=== PATIENT | female | born 1960 | race Caucasian/White ===

== ENCOUNTER 2019-01-08 20:30 | Emergency (ER) | payer SELFPAY ==
--- NOTE | 2019-01-08 20:38 | ED.GENADUL_ITS ---
Discharge Plan Disposition Patient Disposition: OTHER Condition: Stable Discharge Details Chief Complaint: PsychEval Clinical Impression: Alcohol intoxication with moderate or severe use disorder Primary Care Provider: LUIS FONTAINE ED Provider: Bandar Wright Home Meds and New Rx's Prescriptions: Continued triamcinolone acetonide 15 GM cream 1 applic Topical DAILY Qty: 80 RF: 4 Discharge Instructions Instructions: Alcohol Intoxication (ED) Additional Instructions: You will be brought to the PIP bed and re-evaluated in the morning. You should go to alcohol counseling/rehab. Return to ED if problems. Referrals: [facility] [Provider Group] Medical Decision Making Patient brought in for mental health eval. Patient does admit to drinking. She admits to being upset about her mom. She denies SI or HI. I will get screening blood work. She is being evaluated by mental health. Patient's lab work is unremarkable other than an alcohol level of 262 and a salicylate level of 7.2. I have asked patient whether she has taken anything containing aspirin or [place]. She denies. She has taken no medications today. Rest of her labs look fine. We will plan on repeating a salicylate to see whether it is going up or not. If it is not released to mental health to take her to the care bed for the night. They have been in contact with her . He is fine with her coming home once she is sober. 00:10 -repeat salicylate level is going down. Patient is medically cleared. She will be brought to PIP bed to sober up and be re-evaluated by mental health in morning and likely home to . HPI General Mode of arrival: ambulatory . Date/Time Provider Initiated Documentation: 01/08/19 20:34 . Information obtained by: patient and police . HPI Narrative: Patient brought in by [facility] for psych eval. Per police family called them with concern for patient's safety. Patient is intoxicated. She reportedly got bad news about her mom this morning and started drinking. Then started making statements regarding not being useful, better off without her but no overt statement regarding active SI. Patient arrives here crying, tearful. Patient does admit to drinking today. On questioning she states that she drinks pretty much every day. She drinks mostly vodka. She denies trying to harm herself. She states that what she did at the house in regards to taking the pill bottles out of the cupboard was stupid. She reports that she would never hurt herself. She loves her , son, grandson too much. She is definitely upset about her mother dying. She actually has relatively clear sensorium. She has no physical complaints of. Related Data Home Medications Medication Instructions Recorded Confirmed triamcinolone acetonide 1 applic TOPICAL DAILY #80 gm 05/07/15 01/08/19 Allergies Allergy/AdvReac Type Severity Reaction Status Date / Time penicillin AdvReac Intermediate Vomiting Unverified 01/08/19 20:59 Review of Systems Review of Systems 07/07 Review of Systems completed and is negative except as stated above in HPI (Systems reviewed: Const, Eyes, ENT, Resp, CV, GI, , MSK, Skin, Neuro) PFSH Medical History Psoriasis (Chronic) Surgical History H/O tubal ligation (Inactive) Social History Smoking/Tobacco Use Status: Current every day Tobacco Type: cigarettes Alcohol Intake: current Alcohol type: hard liquor Drug use: Daily Details: pt states I drink she states that she usually drinks Vodka Do you feel safe at home: Yes Do you feel safe in your relationship?: Yes Exam Narrative Exam Narrative: Const: WDWN female upset, crying. HEENT: NC/AT. Normal facial exam. Eyes: Normal conjunctiva and sclera. Neck: Supple. Trachea midline. Lungs: Normal respiratory effort. Lungs are clear. Cor: RRR without murmur/gallop. Good radial pulses. Neuro: A+O x 3. CN grossly in tact. Good strength and no focal deficit. Speech clear. Ext: No C/C/E. No deformity or tenderness. Skin: Warm and dry without rash. Psych: Crying, upset, sad about mother. Denies SI, HI. Denies halluciantions.
[2019-01-08 20:43] VITALS: BP 152/70; PULSE 89; RESP 18; TEMP 36.6; O2SAT 99
[2019-01-08 21:48] LABS: ALT 49 U/L (12-78); AST 53 U/L (15-37); Albumin 4.1 g/dL (3.4-5.0); Alkaline Phosphatase 69 U/L (46-116); Anion Gap 11.4 mmol/L (3-11); BUN 9 mg/dL (7-18); Bilirubin, Total 0.3 mg/dL (0.2-1.0); CO2 27.6 mmol/L (21.0-32.0); CREATININE 0.45 mg/dL (0.55-1.02); Chloride 104 mmol/L (98-107); ETHANOL BLOOD 261.8 mg/dL (<3); Glucose 108 mg/dL (70-100); Potassium 4.1 mmol/L (3.5-5.1); Sodium 143 mmol/L (136-145); Total Protein 8.4 g/dL (6.4-8.2)
[2019-01-08 21:53] LABS: Salicylate 7.2 mg/dL (2.8-20.0)
[2019-01-08 21:54] LABS: Acetaminophen < 2 ug/mL (10-30)
[2019-01-08 21:56] LABS: *AMPHETAMINES SCREEN URINE Negative (Negative); *BARBITURATES SCREEN URINE Negative (Negative); *BENZODIAZEPINES SCREEN URINE Negative (Negative); Cannabinoids THC Negative (Negative); Cocaine Screen,Urine Negative (Negative); METHADONE URINE SCREEN Negative (Negative); OPIATES URINE SCREEN Negative (Negative); Tricyclic Antidepressants Negative (Negative)
[2019-01-08 23:33] VITALS: BP 148/90; PULSE 69; RESP 16; TEMP 36.7; O2SAT 94
[2019-01-09 00:02] LABS: Salicylate 5.4 mg/dL (2.8-20.0)
== END 2019-01-09 00:17 | disposition other institution (70) ==
PROVIDERS: Emergency Provider Emergency Medicine; PCP Nurse Practitioner Family
DX: F10.120 Alcohol abuse with intoxication, uncomplicated (principal)
CPT/HCPCS: 36415; 80053; 80307; 99283; 80320; 80329

== ENCOUNTER 2019-10-21 08:59 | Day surgery (SDC) | payer OTHER, SELFPAY ==
[2019-10-21 09:09] VITALS: BP 134/80; PULSE 67; RESP 16; TEMP 35.9; O2SAT 97
--- NOTE | 2019-10-21 09:30 | W.PM.DSUDISC ---
Discharge Plan Disposition Patient Disposition: HOME Condition: Good Discharge Details Reason For Visit: Excision left shoulder lipoma Attending Provider: Maria Elena Iyer Primary Care Provider: Mo Rodriguez Home Meds and New Rx's Prescriptions: Continued ibuprofen 200 mg capsule 600 mg PO Q6H PRNRF: 0 triamcinolone acetonide 15 GM cream 1 applic Topical DAILY PRNQty: 80 RF: 4 Discharge Instructions Additional Instructions: The top bandage can be removed tomorrow. The steri strips will usually stick for about a week. When the edges start to curl up, they can be removed. It is okay to shower tomorrow, the water can run over the steri strips Do not swim or soak in a tub for two weeks Call for any concerns including fever, increased pain, vomiting, incision redness or drainage. Keep lifting light for two weeks. Walking and stairs are fine. Do not drive if on narcotic pain meds or if limited by pain. May use Tylenol alternating with ibuprofen for pain control. Ice is also an option. The maximum dose for Tylenol is 4000 mg/day. May use ibuprofen 800 mg every 8 hours as needed. If concerned about constipation, you may use a stool softener or milk of magnesia. It is normal for some fluid to collect under the incision. This will absorb within 4-6 weeks. If it is bothersome, please contact my office. Referrals: Maria Elena Iyer MD [ [facility] STAFF PHYSICIAN] - (Return in 10-14 days as needed for a postop check) Activity:: Light Remove Dressings/Wound Care:: 24 hours Shower/Bathe:: 24 hours Diet:: As Tolerated Discharge Orders Discharge Orders: Discharge Order (Routine); Ordered 10/21/19 Ordered By: Maria Elena Iyer DS: Diagnosis Discharge Diagnosis (1) Lipoma: Status: Acute
[2019-10-21] MEDS: Lactated Ringers 1,000 ML 80 ML IV (09:46)
--- NOTE | 2019-10-21 10:33 | SOFT_PTH ---
PATIENT: Zeinab Ludwig LOC: [facility] U#:[id number] AGE/SX: 59/F ROOM: RE10/21/[address]: Maria Elena Iyer MD : 1960 BED: DIS: 10/21/2019 SPEC #: [id number] RECD: 10/21/19 12:22 STATUS: HARRY REQ #: [id number] CARLOS: 10/21/19 10:[address]: Maria Elena Iyer DEPT: Surgical Specimen RECD BY: Jazmine Morrissey ENTERED: 10/21/19 12:23 SP TYPE: SOFT OTHR DR: Mo Rodriguez MD Tissues: 1 - SOFT TISSUE MISC (INC. LIPOMA) Procedures: GROSS AND MICRO LEVEL 3 Comments: [id number]
[2019-10-21] MEDS: Bupivacaine 0.25% Pres-Free 30 ML VIAL 20 ML IJ (10:39)
[2019-10-21] MEDS: Bupivacaine LIPOSOME/PF 133 MG/10 ML VIAL IJ (10:39)
[2019-10-21 11:25] VITALS: BP 118/74; PULSE 64; RESP 16; TEMP 36.3; O2SAT 95
--- NOTE | 2019-10-22 07:39 | ROE_ITS ---
REPORT OF OPERATIVE PROCEDURE DATE OF PROCEDURE October 21, 2019 PREOPERATIVE DIAGNOSIS Left posterior shoulder lipoma. POSTOPERATIVE DIAGNOSIS Left posterior shoulder lipoma. PROCEDURE Excision left posterior shoulder lipoma. SURGEON Maria Elena Iyer M.D. ANESTHESIA Local and General. INDICATIONS This is a 59-year-old woman with a bothersome lump along the bra line of her posterior left shoulder. PROCEDURE DESCRIPTION The patient was placed in the right lateral decubitus position. Her shoulder was prepped and draped s terilely. Sedation was administered and the skin overlying the mass was infiltrated with local anesth etic. A vertical incision was made and subcutaneous tissue was divided down to a well encapsulated l ipoma. This was dissected free intact with mostly blunt dissection and occasional use of cautery. Th e lump measured 10 cm in size, and again was removed completely. Hemostasis was achieved with cautery and then the skin closed with running #4-0 Monocryl subcuticular stitch. She tolerated the procedur e well and was stable to recovery.
== END 2019-10-21 11:45 | disposition home or self-care (01) ==
PROVIDERS: PCP Family Medicine; Visit Provider Surgery
PROC: (CPT 21931; principal; 2019-10-21 10:30)
DX: D17.1 Benign lipomatous neoplasm of skin and subcutaneous tissue of trunk (principal)
CPT/HCPCS: 21931; 88304; J1885; J2250; J2405; J2704

== ENCOUNTER 2019-11-24 10:38 | Day surgery (SDC) | payer OTHER, SELFPAY ==
[2019-11-24 10:50] VITALS: BP 150/75; PULSE 66; RESP 16; TEMP 37; O2SAT 98
[2019-11-24] MEDS: Lactated Ringers 1,000 ML 80 ML IV (11:27)
[2019-11-24] MEDS: ceFAZolin 1 GM/50 ML BAG IVPB (14:02)
--- NOTE | 2019-11-24 14:37 | W.PM.DSUDISC ---
Discharge Plan Disposition Patient Disposition: HOME Condition: Good Discharge Details Reason For Visit: Release 1 st dorsal extensor compartment R wrist Attending Provider: Russ Tillman Primary Care Provider: Mo Rodriguez Home Meds and New Rx's Prescriptions: New hydrocodone-acetaminophen 5-325 mg tablet 1 tab PO Q6H PRN (Reason: pain) Qty: 10 RF: 0 No Action ibuprofen 200 mg capsule 600 mg PO Q6H PRNRF: 0 triamcinolone acetonide 15 GM cream 1 applic Topical DAILY PRNQty: 80 RF: 4 Discharge Instructions Additional Instructions: Try to elevate R hand above heart level as much as possible overnite tonite. Wiggle fingers R hand 10 times/hour when awake to prevent swelling. Keep dressings and splint dry and in place for 5 days. After 5 days, remove splint AND dressings and begin to move R thumb and wrist. Use R hand as much as your discomfort allows. After you remove the dressings, may shower or bathe and get incision wet. Leave incision uncovered when it is dry and sealed. Take ibuprofen for mild pain. Take hydrocodone for breakthru pain, if needed. Follow up with in 2 weeks. Referrals: Russ Tillman MD [ [facility] STAFF PHYSICIAN] - (f/u in 2 weeks.) Equipment/Supplies: Splint Activity:: Activity as Tolerated Diet:: As Tolerated Discharge Orders Discharge Orders: Discharge Order (Routine); Ordered 11/24/19 Ordered By: Russ Tillman
[2019-11-24 15:07] VITALS: BP 129/68; PULSE 70; RESP 18; TEMP 36.4; O2SAT 95
--- NOTE | 2019-11-26 05:29 | ROE_ITS ---
REPORT OF OPERATIVE PROCEDURE DATE OF PROCEDURE November 24, 2019 PREOPERATIVE DIAGNOSIS De Quervain's tenosynovitis of the first dorsal extensor compartment, right wrist. POSTOPERATIVE DIAGNOSIS De Quervain's tenosynovitis of the first dorsal extensor compartment, right wrist. PROCEDURES Tendon sheath incision at radial styloid for de Quervain's tendinitis, right wrist. Application of a short arm thumb spica splint. ANESTHESIA IV regional. SURGEON Russ Tillman M.D. INDICATIONS This is a 59-year-old white female with a five-month history of right wrist and thumb pain. This has not responded to conservative treatment of antiinflammatories and splinting. Clinical examination was consistent with de Quervain's tendinitis right wrist. Because of failure to improve with conservativ e treatment over five months, surgery was recommended to decompress the tendons of the first dorsal e xtensor compartment and alleviate her pain. The risks and complications of the procedure were explain ed to the patient in detail preoperatively. DESCRIPTION OF PROCEDURE The patient was taken to the Operating Room on 12/12/19. She was placed supine on the operating tabl e and an IV regional anesthetic was administered to the right upper extremity. Once good anesthesia was obtained, the right hand, wrist and forearm were prepped and draped free in the usual sterile fas hion. A longitudinal incision was made, centered over the first dorsal extensor compartment at the r adial styloid of the right wrist. The incision was about 3 inches in length. The incision was roxanna d down through the skin to the subcu. Blunt tip Littler scissors were then used to mobilize the termi nal branches of the superficial radial nerve away from the first dorsal extensor compartment. The fir st dorsal extensor compartment was incised longitudinally. There were multiple tendon slips encounte red. One small tendon slip was in a separate small compartment. This compartment was released. I then carefully and thoroughly investigated all the tendons as far as proximally of the first dorsal exten sor compartment, as far proximally as the musculotendinous junctions. I encountered a fairly large te ndon slip that was passing through a completely separate compartment within the first dorsal extensor compartment. The sheath of this compartment was probably 2 mm to 3 mm thick. I not only released the compartment, I excised the septi between the tendons, so I created one compartment for all the tendo n slips. The wound margins were infiltrated with 0.5% Marcaine with epinephrine solution. The skin edges were approximated with interrupted #4-0 Nylon sutures. Sterile dressings were applied of Xeroform gauze, sterile gauze, 4x4s, ABD Pad, wrapped with an Intersorb bandage, then I applied a radial thumb spica fiberglass splint, which was held in place with a 3-inch Derrick bandage. The patient's IV regional anesthesia was reversed without complication. She was discharged to the Re covery Room in good condition. The patient was later discharged home from the Day Surgery Unit when fully recovered from her IV remy onal anesthesia. She was given in instructions to try to elevate her right hand above heart level as much as possible overnight tonight. She is encouraged to wiggle her fingers 10 times an hour while awake to prevent swelling. She is to k eep the dressings and splint dry and intact for five days. After five days, she is to remove the dres sings and splint and begin to remove her right wrist and thumb. After she removes her dressings she m ay shower, bathe and get her incision wet. She can leave the incision uncovered when it is dry and se aled. She will take Tylenol or ibuprofen for mild pain. She was given a prescription for breakthrough pain of hydrocodone with APAP 5/325, one tablet every six hours as needed. Follow up with Dr. Tillman in two weeks.
== END 2019-11-24 15:30 | disposition home or self-care (01) ==
PROVIDERS: PCP Family Medicine; Visit Provider Orthopaedic Surgery
PROC: (CPT 25000; principal; 2019-11-24 12:15)
DX: M65.4 Radial styloid tenosynovitis [de Quervain] (principal)
CPT/HCPCS: 25000; J0690; J2001; J2250; J2704; J3010

== ENCOUNTER 2022-11-24 10:23 | Outpatient (REF) | payer OTHER, SELFPAY ==
--- NOTE | 2022-11-24 10:00 | SKI_PTH ---
PATIENT: Zeinab Ludwig LOC: [facility] U#:[id number] AGE/SX: 62/F ROOM: RE11/24/[address]: FIORDALIZA Hernandez : 1960 BED: DIS: 11/24/2022 SPEC #: [id number] RECD: 11/24/22 18:17 STATUS: HARRY REQ #: [id number] CARLOS: 11/24/22 10:[address]: Ned Segovia DEPT: Surgical Specimen RECD BY: Jazmine Morrissey ENTERED: 11/24/22 18:17 SP TYPE: GABO HINKLE DR: Mo Rodriguez MD Tissues: 1 - SKIN BIOPSY(SHAVE/PUNCH) 2 - SKIN BIOPSY(SHAVE/PUNCH) Procedures: SKIN LEVEL 4 Comments: [id number]
== END 2022-11-24 10:24 | disposition home or self-care (01) ==
LOC: LBN 10:23
PROVIDERS: PCP Family Medicine; Visit Provider Physician Assistant
DX: D22.5 Melanocytic nevi of trunk (principal)
CPT/HCPCS: 88305

== ENCOUNTER 2022-12-27 03:27 | Outpatient (CLI) | payer OTHER, SELFPAY ==
[2022-12-27 11:44] LABS: Calculated LDL 134 mg/dL (<100); Cholesterol 199 mg/dL (<200); HDL Cholesterol 56 mg/dL (40-60); Triglyceride 48 mg/dL (<150)
[2022-12-27 12:06] LABS: FREE T4 0.88 ng/dL (0.76-1.46); TSH 1.77 uIU/mL (0.36-3.74)
[2022-12-27 20:17] LABS: T3,Free 4.2 pg/mL (2.8-5.3)
[2022-12-28 19:52] LABS: Thyrotropin Receptor Ab <1.10 IU/L
== END 2022-12-27 03:28 | disposition home or self-care (01) ==
LOC: LBO 03:27
PROVIDERS: Ophthalmology; PCP Family Medicine; Visit Provider Family Medicine
DX: H02.531 Eyelid retraction right upper eyelid (principal); H02.534 Eyelid retraction left upper eyelid
CPT/HCPCS: 36415; 80061; 84235; 84439; 84443; 84480; 84481

== ENCOUNTER 2023-06-01 11:11 | Outpatient (REF) | payer OTHER, SELFPAY ==
--- NOTE | 2023-06-01 10:30 | SKI_PTH ---
PATIENT: Zeinab Ludwig LOC: [facility] U#:[id number] AGE/SX: 63/F ROOM: RE06/01/[address]: FIORDALIZA Hernandez : 1960 BED: DIS: 06/01/2023 SPEC #: [id number] RECD: 06/01/23 16:53 STATUS: HARRY REQ #: [id number] CARLOS: 06/01/23 10:[address]: Ned Segovia DEPT: Surgical Specimen RECD BY: Jazmine Morrissey ENTERED: 06/01/23 16:54 SP TYPE: GABO HINKLE DR: Mo Rodriguez MD Tissues: 1 - SKIN BIOPSY(SHAVE/PUNCH) 2 - SKIN BIOPSY(SHAVE/PUNCH) Procedures: SKIN LEVEL 4 Comments: [id number]
== END 2023-06-01 11:12 | disposition home or self-care (01) ==
LOC: LBN 11:11
PROVIDERS: PCP Family Medicine; Visit Provider Physician Assistant
DX: D22.5 Melanocytic nevi of trunk (principal)
CPT/HCPCS: 88305

== ENCOUNTER → 2025-07-28 00:47 | Outpatient (CLI) | payer OTHER, SELFPAY ==
--- NOTE | 2025-07-28 07:45 | DI.MAMMO_ITS ---
Exam(s) MAMMO SCREENING EXAM: MAMMO SCREENING CLINICAL HISTORY: screening,z12.39. TECHNIQUE: Bilateral full field digital CC and MLO mammographic images were obtained with 3D tomosynthesis and utilizing computer aided detection (CAD). COMPARISON: There are no previous for comparison FINDINGS: Right breast skin moles are noted. There are no spiculated masses nor malignant appearing microcalcification groups. There is no significant architectural distortion nor skin thickening-retraction. IMPRESSION: No radiographic evidence of malignancy. BI-RADS Category 2 - Benign Findings Breast Density - Category B - There are scattered areas of fibroglandular density. Breast density Category C or D implies that the patient has dense breast tissue. Dense breast tissue can make it harder to find cancer on a mammogram. Dense breast tissue is also associated with an increased risk of breast cancer. This information about the result of the mammogram report was provided to the patient to raise their awareness. Use this report when you speak with the patient about their risks for breast cancer, which includes their family history. At that time, you may recommend additional screening tests (Ultrasound or MRI) as these tests may add significant information. A negative radiographic report should not delay biopsy if a dominant or clinically suspicious mass is present. Up to ten percent of cancers are not identified on mammography. A negative report may reinforce clinical impression. Adenosis and dense breasts may obscure an underlying neoplasm. False positive reports average 6 to 10%. Patient will receive a letter notifying them of these results.
--- NOTE | 2025-07-28 07:45 | DI.CTLCSR_ITS ---
Exam(s) CT CHEST LUNG CANCER SCREEN EXAM: CT CHEST LUNG CANCER SCREEN CLINICAL HISTORY: Screening for lung cancer,encounter for screening lung ca,z12.2. TECHNIQUE: Imaging Protocol: Low Dose Technique CONTRAST MATERIAL: None COMPARISON: No exams were available for comparison FINDINGS: CHEST: LUNGS: There are benign calcified bilateral granulomas ranging up to 4 mm size. There are no ominous noncalcified pulmonary nodules. There are no confluent infiltrates. There is some scarring in the anterior basal segment of the left lower lobe. No pleural effusions. MEDIASTINUM: There is no obvious hilar nor mediastinal adenopathy. CARDIAC: Heart size is normal. There is no pericardial effusion.Caliber of the thoracic aorta is within normal limits. OTHER: No adrenal masses. No ascites. OSSEOUS: No significant osseous lesions.No fractures. IMPRESSION: 1. There are benign calcified bilateral granulomas. 2. No ominous lung nodules, infiltrates, nor pleural effusions. 3. Lung RADS Cat 1 - Negative: No nodules and definitely benign nodules Lung-RADS 1.0 CATEGORIES: Category 0 - Prior chest CT exam(s) being located for comparison. Category 1 - Annual screening in 12 months. No nodules or definitely benign nodules. Category 2 - Annual screening in 12 months. Benign appearance. Nodules with low likelihood of becoming active cancer. Category 3 - 6-month follow-up. Probably benign. Short-term follow-up suggested. Nodules with low likelihood of becoming active cancer. Category 4A - 3-month follow-up and CT/PET if >8 mm in size. Suspicious finding. Findings which require additional testing. Category 4B - Findings which require additional testing and tissue sampling. Category 4X - Category 3 or 4 nodules with additional features or imaging findings that increases the suspicion of malignancy. Modifier S- Potentially clinically significant findings (non lung cancer) RADIATION DOSE DELIVERED: 102mGy.cm Total DLP DATA REPOSITORY: All CT scans at this facility are submitted to the National Radiology Data Registry (NRDR) Dose Index Registry (DIR) with the [employer] ([employer]). RADIATION OPTIMIZATION: All CT scans at this facility use at least one of these dose optimization techniques: automated exposure control; mA and/or kV adjustment per patient size (includes targeted exams where dose is matched to clinical indication); or iterative reconstruction.
== END ==
LOC: DI 00:47
PROVIDERS: PCP Family Medicine; Visit Provider Family Medicine
DX: Z12.31 Encounter for screening mammogram for malignant neoplasm of breast (principal); Z12.2 Encounter for screening for malignant neoplasm of respiratory organs
CPT/HCPCS: 71271; 77063; 77067

== ENCOUNTER 2025-07-31 00:58 | Outpatient (CLI) | payer OTHER, SELFPAY ==
[2025-07-31 17:37] LABS: Cholesterol 201 mg/dL (<200); HDL Cholesterol 56 mg/dL (>or=50)
[2025-07-31 17:41] LABS: Hemoglobin A1C 5.7 % (<5.7)
== END 2025-07-31 00:59 | disposition home or self-care (01) ==
LOC: LOS 00:58
PROVIDERS: PCP Family Medicine; Visit Provider Family Medicine
DX: R73.9 Hyperglycemia, unspecified (principal); Z13.220 Encounter for screening for lipoid disorders
CPT/HCPCS: 36415; 80061; 83036